=== PATIENT | male | born 1965 | race Two or more races ===

== ENCOUNTER 2025-01-10 08:23 | Outpatient (AMB) | payer MEDICAID, SELFPAY ==
[2025-01-10 08:40] VITALS: BP 121/78; PULSE 64; RESP 18; TEMP 36.8; O2SAT 96; BMI 32.5
--- NOTE | 2025-01-10 08:40 | ORTHONT_ITS ---
Vital signs 01/10/25 08:40 Height 1.68 m Height Method Stated Weight 91.427 kg Weight Measurement Method Standing Scale BMI 32.5 BP 121/78 Blood Pressure Source Automatic Cuff Blood Pressure Location Right Upper Arm Position Sitting Respiration 18 Pulse 64 Pulse Source Monitor Temp 98.2 F Temp Source Temporal Artery Scan Pulse Oximetry (%) 96 Oxygen Delivery Method Room Air Med/Allergies Allergies & Medications Allergies No Known Allergies Allergy (Verified 01/10/25 08:41) Medication Reconciliation No Known Home Medications 01/10/25 [History Confirmed 01/10/25] Exam Exam Patient is in no acute distress and is cooperative with the examination today. Breathing is nonlabored. In no respiratory distress. Bilateral extremities were evaluated and demonstrates sensation intact to light touch. Palpable pedal pulses are present. No significant edema is present. Bilateral hips were examined. The patient has no pain with log roll of the hips. Internal rotation to 30 degrees and external rotation to 30 degrees is painless. Negative FADIR. Left knee was examined today. The right knee is in reasonable alignment. Range of motion from 0-120 degrees. Knee is stable to varus and valgus as well as AP translation with <5mm. Patient has a negative McMurrays. There is no pain with patellofemoral compression and no crepitus noted. The knee is nontender to palpation. Right knee incision is clean dry and intact. Range of motion is 0 to 70 degrees. Knee feels stable to varus and valgus stress as well as AP translation Patient has an x-ray from 2 years ago which demonstrates a cemented total knee replacement with no gross loosening Assessment and Plan Problem List (1) History of total right knee replacement: Status: Acute Plan: Patient is a 59-year-old male with a right total knee replacement that is stiff. The surgery was done in [place]. We do not have the option of downsizing the liner as this is an unfamiliar component and is not available here. We will get x-rays and go from there. 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 ([id number]) MA Intake Visit Data Collection New Patient or Established: New Patient (never been to [facility]) Reason for Visit:: BILAT KNEE PAIN TKA ON RT KNEE IN FISH HAVEN Seen by Clinical Staff ONLY (RN/MA): No Retention Specialist Required: No PCP or OBGYN visit in last 3 months: Yes Hx Now: No Do You Feel Safe at Home: Yes Authorities Contacted: N/A Questionairres Past Medical History Past Medical History Have you ever been diagnosed with any of the following: Respiratory Problems Smoking: No Smoking Cessation Counseling: No Smoking Exposure: No Tobacco Use: No Subjective Visit Visit for: new patient and knee (BILAT KNEE PAIN ) Immunization / Flu Flu Vaccine in the Last 12 Months: Yes Flu Vaccine Exclusion Criteria: Already Received History of Present Illness Chief complaint: Right knee pain Gordy is a 59-year-old male with a right knee replacement done in [place] 3 years ago. Has had persistent pain since then. His knee is also stiff. Reports it is painful all the time. It is affecting his quality life and happiness. He did see a prior orthopedic surgeon who does not do revisions and could not tell him what was wrong Personal History Red flag PMH: none Pain Pain level (0-10): 10 Pain duration: 2 YEARS AGO Pain location: anterior Pain quality: sharp and burning Pain timing: night and increases with activity Associated signs & symptoms: stiffness Ambulatory data Ambulatory device: none Walking distance (minutes): 5 Treatments Number of previous injections: 2 Improvement with previous injections: No Number of Physical Therapy sessions: 0 Improvement with NSAIDS: n/a Review of Systems Review of Systems: All systems negative unless otherwise noted in HPI.
--- NOTE | 2025-01-10 08:48 | XR_ITS ---
Examination: Bilateral AP knees single view PA lateral axial right knee 3 views TECHNIQUE: Bilateral AP knees standing single view PA standing right knee, standing lateral right knee, axial right knee 3 views total 4 views Date and time: January 10, 2025 0906 hours INDICATIONS: Right knee pain post knee replacement 2021 FINDINGS: Total right knee replacement Satisfactory alignment No loosening of the prosthetic components No patellar dislocation Moderate narrowing medial joint space left knee IMPRESSION: Total right knee replacement with satisfactory alignment Moderate narrowing medial joint space left knee
== END 2025-01-10 08:55 | disposition home or self-care (01) ==
PROVIDERS: PCP Internal Medicine; Referring Provider Internal Medicine; Supervising Provider Orthopaedic Surgery Adult Reconstructive Orthopaedic Surgery; Visit Provider Orthopaedic Surgery Adult Reconstructive Orthopaedic Surgery
DX: M25.661 Stiffness of right knee, not elsewhere classified (principal); Z96.651 Presence of right artificial knee joint
CPT/HCPCS: 73564; 99203; G0463